=== PATIENT | female | born 1995 | race Caucasian/White ===

== ENCOUNTER 2017-03-03 19:43 | Emergency (ER) | payer BC ==
[~2017-03-03] VITALS: Ht 160 cm; Wt 54.4 kg
[2017-03-03 20:00] VITALS: BP 122/70; PULSE 109; RESP 19; TEMP 98.4; O2SAT 100
[2017-03-03] MEDS ORDERED: PROCHLORPERAZINE EDISYLATE 10 MG/2 ML VIAL IVP ONE (20:15)
[2017-03-03] MEDS ORDERED: NACL 0.9% 1,000 ML IV ONE (20:15)
[2017-03-03] MEDS ORDERED: KETOROLAC TROMETHAMINE 30 MG VIAL IVP ONE (20:15)
[2017-03-03] MEDS ORDERED: DIPHENHYDRAMINE INJ 50 MG/ML VIAL IVP ONE (20:15)
[2017-03-03 20:42] LABS: BILIRUBIN,URINE NEGATIVE (NEGATIVE); BLOOD, URINE NEGATIVE (NEGATIVE); CLARITY/URINE CLEAR (CLEAR); COLOR,URINE YELLOW (YELLOW); GLUCOSE,URINE NEGATIVE (NEGATIVE); KETONES,URINE NEGATIVE (NEGATIVE); LEUKOCYTE ESTERASE ,URINE NEGATIVE (NEGATIVE); NITRITE, URINE NEGATIVE (NEGATIVE); PROTEIN URINE NEGATIVE (NEGATIVE); UROBILINOGEN,URINE 0.2 (0.2-1.0)
[2017-03-03 21:16] VITALS: BP 120/78; PULSE 80; RESP 14; TEMP 98; O2SAT 99
== END 2017-03-03 21:16 | disposition home or self-care (01) ==
LOC: SED 19:43
DX: R51 Headache (principal); R03.0 Elevated blood-pressure reading, without diagnosis of hypertension
CPT/HCPCS: 81003; 81025; 96361; 96374; 96375; 99284; J0780; J1200; J1885; J7030

== ENCOUNTER 2017-03-07 21:39 | Emergency (ER) | payer BC ==
[~2017-03-07] VITALS: Ht 160 cm; Wt 54.4 kg
[2017-03-07 21:44] VITALS: BP 123/78; PULSE 87; RESP 18; TEMP 97.6; O2SAT 97
--- NOTE | 2017-03-07 21:48 | NUR ---
Patient to ER bed 5 to gown for evaluation. Side rails up. Report given to Nuvia FLORES.
--- NOTE | 2017-03-07 21:49 | NUR ---
Pt in bed 8 with c/o nausea and dizziness, no vomiting . Dr Silva aware.
--- NOTE | 2017-03-07 21:57 | NUR ---
ER at bedside examining patient.
[2017-03-07] MEDS ORDERED: MECLIZINE HCL 25 MG TABLET (ANITVERT) PO ONE (22:15)
[2017-03-07] MEDS ORDERED: METOCLOPRAMIDE HCL 10 MG/2 ML VIAL IVP ONE (22:15)
[2017-03-07] MEDS ORDERED: NACL 0.9% 1,000 ML IV ONE (22:15)
[2017-03-07 22:23] LABS: BASOPHILS % (AUTO) 0.3 % (0.0-2.0); EOSINOPHILS # (AUTO) 0.1 K/uL (0.0-0.4); EOSINOPHILS % (AUTO) 0.8 % (0.0-4.0); HEMATOCRIT 41.8 % (36-48); HEMOGLOBIN 13.9 g/dL (12.0-16.0); LYMPHOCYTES # (AUTO) 1.3 K/uL (1.0-5.5); LYMPHOCYTES % (AUTO) 17.7 % (20.5-51.5); MEAN CORPUSCULAR HEMOGLOBIN 29 pg (27-31); MEAN CORPUSCULAR HGB CONC 33 % (32-36); MEAN CORPUSCULAR VOLUME 86 fL (79.0-98.0); MONOCYTES # (AUTO) 0.5 K/uL (0.0-1.0); MONOCYTES % (AUTO) 6.7 % (1.7-9.3); NEUTROPHILS # (AUTO) 5.3 K/uL (1.8-7.7); NEUTROPHILS % (AUTO) 74.5 % (40.0-70.0); PLATELET COUNT (AUTO) 168 K/uL (130-430); RED BLOOD CELL COUNT(AUTO) 4.85 MIL/uL (4.2-6.2); RED CELL DISTRIBUTION WIDTH 12.2 % (9.0-15.0); WHITE BLOOD COUNT (AUTO) 7.2 K/uL (4.5-11.0)
[2017-03-07 22:29] LABS: BILIRUBIN,URINE NEGATIVE (NEGATIVE); BLOOD, URINE TRACE (NEGATIVE); CLARITY/URINE CLEAR (CLEAR); COLOR,URINE YELLOW (YELLOW); GLUCOSE,URINE NEGATIVE (NEGATIVE); KETONES,URINE NEGATIVE (NEGATIVE); LEUKOCYTE ESTERASE ,URINE NEGATIVE (NEGATIVE); NITRITE, URINE NEGATIVE (NEGATIVE); PROTEIN URINE NEGATIVE (NEGATIVE); UROBILINOGEN,URINE 0.2 (0.2-1.0)
--- NOTE | 2017-03-07 22:30 | NUR ---
# 20 gauge angiocath placed to LAC. Use of asceptic technique. Opsite placed over site. Blood return noted. Blood for lab drawn from site. Flushed with 10 cc of normal saline. No evidence of infiltration noted. Patient tolerated well.
[2017-03-07 22:37] LABS: CALCIUM 9.5 mg/dL (8.4-11.0); CREATININE 0.69 mg/dL (0.55-1.30); POTASSIUM 3.8 mmol/L (3.5-5.1)
[2017-03-07 22:38] LABS: BACTERIA,URINE RARE /HPF (None Seen); RBC,URINE 0-3 /HPF (0-3); WBC,URINE 0-3 /HPF (0-3)
[2017-03-07 22:39] LABS: MUCUS,URINE None Seen /LPF (None Seen)
[2017-03-07 22:40] LABS: BARBITURATE, URINE NEGATIVE (NEG <=200); BENZODIAZEPINE, URINE NEGATIVE (NEG <=150); CANNABINOID, URINE NEGATIVE (NEG <=50); COCAINE, URINE NEGATIVE (NEG <=150); METHAMPHETAMINES SCREEN,URINE NEGATIVE (NEG <=500); OPIATE, URINE NEGATIVE (NEG <=100); PHENCYCLIDINE SCREEN,URINE NEGATIVE (NEG <=25); UR TRICYCLIC ANTIDEPRESSANTS NEGATIVE (NEG <=300); URINE AMPHETAMINE NEGATIVE (NEG <=500); URINE METHADONE NEGATIVE (NEG <=200); URINE OXYCODONE SCREEN NEGATIVE (NEG <=100); URINE PROPOXYPHENE SCREEN NEGATIVE (NEG <=300)
[2017-03-07 22:43] LABS: ALBUMIN 4.1 g/dL (3.4-4.8); TOTAL BILIRUBIN 0.2 mg/dL (0.0-1.0)
--- NOTE | 2017-03-07 22:46 | NUR ---
Patient transported to radiology via GURNEY, accompanied by FIELD SUPERVISOR.
--- NOTE | 2017-03-07 22:51 | NUR ---
Returned from radiology, back to [facility].
[2017-03-07 23:50] VITALS: BP 118/67; PULSE 78; RESP 18; TEMP 97.6; O2SAT 97
--- NOTE | 2017-03-07 23:50 | NUR ---
Patient given written and verbal discharge instructions and verbalizes understanding. ER MD discussed with patient the results and treatment provided. Patient in stable condition. ID arm band removed. IV catheter removed intact and dressing applied, no active bleeding. Rx of antivert,reglan given. Patient educated on pain management and to follow up with PMD. Pain Scale 0/10. Opportunity for questions provided and answered.
== END 2017-03-07 23:50 | disposition home or self-care (01) ==
LOC: SED 21:39
DX: R42 Dizziness and giddiness (principal); B34.9 Viral infection, unspecified
CPT/HCPCS: 36415; 70450; 80053; 80307; 81000; 81025; 83690; 85025; 93005; 96361; 96374; 99285; J2765; J7030; J8597

== ENCOUNTER 2017-03-08 19:52 | Emergency (ER) | payer BC ==
[~2017-03-08] VITALS: Ht 160 cm; Wt 56.7 kg
[2017-03-08 20:06] VITALS: BP_SYST 106
--- NOTE | 2017-03-08 22:35 | NUR ---
Patient to ER bed 6 to gown for evaluation. Side rails up. Report given to MARK SOLARES.
--- NOTE | 2017-03-08 22:50 | NUR ---
Pt complain of feeling dizzy and nausea since wednesday. Pt was at [facility]R yesterday. pt stated did not medication at home, because pt read the side effects. Pt denied SOB, clear speech. pt's mother at bedside. will continue to monitor
--- NOTE | 2017-03-08 23:05 | NUR ---
BETTIE Beaulieu at bedside examining patient.
[2017-03-08] MEDS ORDERED: NACL 0.9% 1,000 ML IV ONE (23:15)
[2017-03-08] MEDS ORDERED: DIPHENHYDRAMINE INJ 50 MG/ML VIAL IVP ONE (23:15)
[2017-03-08] MEDS ORDERED: KETOROLAC TROMETHAMINE 30 MG VIAL IVP ONE (23:15)
[2017-03-08] MEDS ORDERED: ONDANSETRON HCL 4 MG/2 ML VIAL IVP ONE (23:15)
[2017-03-09] MEDS ORDERED: PREDNISONE 20 MG TABLET PO ONE (00:15)
[2017-03-09] MEDS ORDERED: DIPHENHYDRAMINE INJ 50 MG/ML VIAL ONE (00:24)
[2017-03-09] MEDS ORDERED: METOCLOPRAMIDE HCL 10 MG/2 ML VIAL IVP ONE (01:15)
[2017-03-09] MEDS ORDERED: METOCLOPRAMIDE HCL 10 MG/2 ML VIAL ONE (01:23)
--- NOTE | 2017-03-09 02:10 | NUR ---
Patient given written and verbal discharge instructions and verbalizes understanding. ER MD discussed with patient the results and treatment provided. Patient in stable condition. ID arm band removed. IV catheter removed intact and dressing applied, no active bleeding. No reaction noted for the medication. No Rx of given. Patient educated on pain management and to follow up with PMD. Pain Scale 0/10 Opportunity for questions provided and answered.
== END 2017-03-09 02:10 | disposition home or self-care (01) ==
LOC: SED 19:52
DX: R42 Dizziness and giddiness (principal); R11.0 Nausea
CPT/HCPCS: 81025; 96361; 96374; 96375; 99284; J1200; J1885; J2405; J2765; J7030; J7512

== ENCOUNTER 2017-03-31 19:25 | Emergency (ER) | payer BC ==
[~2017-03-31] VITALS: Ht 160 cm; Wt 56.2 kg
[2017-03-31 19:25] VITALS: BP_SYST 124
[2017-03-31 20:09] VITALS: BP_SYST 119
== END 2017-03-31 20:09 | disposition home or self-care (01) ==
LOC: SED 19:25
DX: F41.9 Anxiety disorder, unspecified (principal)
CPT/HCPCS: 81025; 93005; 99284

== ENCOUNTER 2017-06-01 19:57 | Inpatient (IN) | payer BC ==
[~2017-06-01] VITALS: Ht 160 cm; Wt 54.4 kg
[2017-06-01 20:03] VITALS: BP_SYST 104
[2017-06-01 22:07] LABS: CALCIUM 9.5 mg/dL (8.4-11.0); CREATININE 0.77 mg/dL (0.55-1.30); POTASSIUM 3.8 mmol/L (3.5-5.1)
[2017-06-01 22:09] LABS: BASOPHILS # (AUTO) 0.1 K/uL (0.0-0.2); BASOPHILS % (AUTO) 0.5 % (0.0-2.0); EOSINOPHILS % (AUTO) 0.3 % (0.0-4.0); HEMATOCRIT 43.4 % (36-48); HEMOGLOBIN 14.3 g/dL (12.0-16.0); LYMPHOCYTES # (AUTO) 1.8 K/uL (1.0-5.5); LYMPHOCYTES % (AUTO) 13.9 % (20.5-51.5); MEAN CORPUSCULAR HEMOGLOBIN 28 pg (27-31); MEAN CORPUSCULAR HGB CONC 33 % (32-36); MEAN CORPUSCULAR VOLUME 86 fL (79.0-98.0); MONOCYTES # (AUTO) 0.6 K/uL (0.0-1.0); MONOCYTES % (AUTO) 4.5 % (1.7-9.3); NEUTROPHILS # (AUTO) 10.1 K/uL (1.8-7.7); NEUTROPHILS % (AUTO) 80.8 % (40.0-70.0); PLATELET COUNT (AUTO) 203 K/uL (130-430); RED BLOOD CELL COUNT(AUTO) 5.08 MIL/uL (4.2-6.2); RED CELL DISTRIBUTION WIDTH 12.5 % (9.0-15.0); WHITE BLOOD COUNT (AUTO) 12.6 K/uL (4.5-11.0)
[2017-06-01 22:11] LABS: ALBUMIN 4.3 g/dL (3.4-4.8); TOTAL BILIRUBIN 0.6 mg/dL (0.0-1.0)
--- NOTE | 2017-06-01 22:11 | NUR ---
Patient to [facility] for evaluation. Side rails up. Report given to MARK SANTOYO.
--- NOTE | 2017-06-01 22:13 | NUR ---
Pt brought by mother, A&Ox4, pt c/o R lower abd pain 10/10, denies N/V, pt ambulatory , pt denies bleeding,denies N/V, skin pink and warm, cap refill <3.
--- NOTE | 2017-06-01 22:15 | NUR ---
Dr Spivey at bedside examining patient
[2017-06-01 22:25] LABS: BILIRUBIN,URINE NEGATIVE (NEGATIVE); BLOOD, URINE 2+ (NEGATIVE); CLARITY/URINE SL CLOUDY (CLEAR); COLOR,URINE YELLOW (YELLOW); GLUCOSE,URINE NEGATIVE (NEGATIVE); KETONES,URINE TRACE (NEGATIVE); LEUKOCYTE ESTERASE ,URINE 1+ (NEGATIVE); NITRITE, URINE NEGATIVE (NEGATIVE); PH,URINE 6.5 (5.0-8.0); PROTEIN URINE NEGATIVE (NEGATIVE); UROBILINOGEN,URINE 0.2 (0.2-1.0)
[2017-06-01 22:32] LABS: BACTERIA,URINE MODERATE /HPF (None Seen); RBC,URINE 0-3 /HPF (0-3)
--- NOTE | 2017-06-01 23:13 | NUR ---
Pt on stable condition, mother at bedside
[2017-06-01] MEDS ORDERED: ONDANSETRON HCL 4 MG/2 ML VIAL IVP PRN (23:45)
[2017-06-01] MEDS ORDERED: MORPHINE 2 MG/ML INJ. SYRINGE IVP PRN (23:45)
[2017-06-02] MEDS ORDERED: PIPERACILLIN/TAZOBACTAM 3.375 GM/VIAL (ZOSYN) IV ONE ×2 (00:01→01:11)
--- NOTE | 2017-06-02 00:41 | NUR ---
Patient will be admitted to care of Dr. Morton. Admitted to MS unit. Will go to room 123. Belongings list completed. Summary report printed. Report will be given at bedside.
--- NOTE | 2017-06-02 00:41 | NUR ---
ADMISSION NOTE Received patient from ER via gurney. Patient admitted with diagnosis of APPENDICITIS. Patient is awake, alert, oriented X4. Patient oriented to hospital room, call light, toileting, pain management and safety-teach back done. Patient informed that LITZY FLORES will be her nurse and that their room number is 123A . Personal belongings checked and Belongings List documented. Call light within reach.
--- NOTE | 2017-06-02 00:48 | NUR ---
RECEIVED REPORT FROM ER AND ADMITTING Report received from MARK Sweet and Dm Fregoso RN. Patient resting in bed and family at bedside. Patient normally ambulatory. V/S taken. Patient has no C/O pain at this time. Patient has no S/S of distress or discomfort noted. Peripheral IV noted, Left Wrist 20 G saline locked, patent and benign.
[2017-06-02 00:53] VITALS: BP_SYST 115
--- NOTE | 2017-06-02 01:07 | NUR ---
CONSULT DR. FAUZIA MIGUEL IS AWARE OF THE CONSULT HE ALREADY SPOKE WITH THE RN IN CHARGE OF THIS PATIENT
[2017-06-02] MEDS ORDERED: metroNIDAZOLE 500 mg/NS 100 ML IV ONE (01:11)
[2017-06-02] MEDS: D5/0.45 NS 1,000 ML IV SCH (01:20)
[2017-06-02] MEDS: PIPERACILLIN/TAZO 3.375 GM in NS 50 ML IV SCH ×3 (01:21→16:43)
--- NOTE | 2017-06-02 02:09 | NUR ---
RN ROUNDING Patient resting in bed. Family at bedside. No S/S of distress or discomfort noted. Patient denies pain at this time.
--- NOTE | 2017-06-02 04:27 | NUR ---
RN ROUNDING Patient sleeping in bed. No S/S of distress or discomfort noted.
--- NOTE | 2017-06-02 07:25 | NUR ---
RN CLOSING NOTE Report given to MARK Goode. Patient resting in bed and family at bedside. Patient ambulatory. Patient has no C/O pain at this time. Patient has no S/S of distress or discomfort noted. Peripheral IV noted, Left Wrist 20 G infusing D5 1/2 NS @ 90 ml/hr, patent and benign. Bed locked at lowest position w/ rails up and call armas within reach. Re-oriented patient to use of call armas. Standard and fall precautions implemented.
[2017-06-02 07:44] LABS: INR 1.1 (0.8-1.2); PROTHROMBIN TIME 11.1 SECS (9.5-12.5)
[2017-06-02] MEDS: metroNIDAZOLE 500 mg/NS 100 ML IV SCH ×2 (07:55→16:07)
--- NOTE | 2017-06-02 08:00 | NUR ---
Opening note Pt resting in bed ALOC x 4 with family at bedside, pt NPO awaiting laproscopic appendectomy. No s/s of SOB or distress, no c/o pain or discomfort at this time. REviewed care plan for the day and answered basic procedural questions about what to expect wtih the hospital stay. Physician will come to explain the procedure and have consent signed. Bed in low position with call light within reach and pt agrees to call for assistance.
[2017-06-02 08:27] VITALS: BP_SYST 120
[2017-06-02 09:10] LABS: HCG,QUAL RESULT NEGATIVE (NEGATIVE)
--- NOTE | 2017-06-02 09:45 | NUR ---
Pt to surgery Physician and anesthesiologist explained procedure to pt and obtained consent, screening had not been completed in the ER and was completed ahead of time. Pt transported to ER.
[2017-06-02] MEDS ORDERED: LR 1,000 ML IV ONE (11:11)
[2017-06-02] MEDS ORDERED: fentaNYL CITRATE/PF 100 MCG/2 ML AMP IVP PRN (11:15)
[2017-06-02] MEDS ORDERED: NALOXONE HCL 0.4 MG/ML AMP (NARCAN) IVP PRN (11:15)
[2017-06-02] MEDS ORDERED: ePHEDrine sulfate 50 MG/ML VIAL IVP PRN (11:15)
[2017-06-02] MEDS ORDERED: ONDANSETRON HCL 4 MG/2 ML VIAL IVP PRN ×2 (11:15)
[2017-06-02] MEDS ORDERED: NALBUPHINE HCL 10 MG/ML AMP IVP PRN (11:15)
[2017-06-02] MEDS ORDERED: KETOROLAC TROMETHAMINE 30 MG VIAL IM PRN (11:15)
[2017-06-02] MEDS ORDERED: DIPHENHYDRAMINE INJ 50 MG/ML VIAL IVP PRN (11:15)
[2017-06-02] MEDS ORDERED: fentaNYL CITRATE/PF 100 MCG/2 ML AMP ONE (11:57)
[2017-06-02] MEDS ORDERED: PIPERACILLIN/TAZO 3.375/DEX-IS 50 ML IV SCH (12:00)
[2017-06-02 12:06] VITALS: BP_SYST 120
--- NOTE | 2017-06-02 12:45 | NUR ---
Pt received from Surgery pt received from surgery, ALOC x 4, no s/s of SOB or distress, no c/o pain or discomfort at this time. Vital signs obtained. Will continue to monitor, family at bedside.
[2017-06-02] MEDS ORDERED: HYDROmorphone 1 MG INJ. 1 MG/ML AMPUL IM PRN (14:00)
--- NOTE | 2017-06-02 14:00 | NUR ---
Rounding Helped pt to restroom, no s/s of SOB or c/o pain. Bed in low position with call light within reach.
[2017-06-02 16:00] VITALS: BP_SYST 112
--- NOTE | 2017-06-02 16:00 | NUR ---
Rounding Pt resting in bed with family at bedside, no s/s of SOB or distress, no c/o pain or discomfort. Awaiting her dinner, c/o being "a little hungry".
--- NOTE | 2017-06-02 17:45 | NUR ---
Pharmacy contact contacted pharmacy on the floor about late admin of flagyl and zosyn this afternoon and asked them to adjust dose.
--- NOTE | 2017-06-02 18:30 | NUR ---
Closing note Pt resting in bed with family at bedside, no s/s of SOB or distress, no c/o pain or discomfort. Pt ate her dinner and ambulated to restroom independently. Pt has steady gait. Bed left in low position with call light within reach, pt agrees to call for assistance. Will endorse and give report to NOC shift nurse.
[2017-06-02 20:13] VITALS: BP_SYST 121
--- NOTE | 2017-06-02 22:15 | NUR ---
PATIENT awake alert on room air 02 SAT 97 % no SOB noted with position change call armas with patient procedures explained family @ the bedside .
--- NOTE | 2017-06-03 | NUR ---
ZOSYN 2.25GM IVPB administer as ordered no allergic reaction skin rash free dry warm .
[2017-06-03] MEDS: PIPERACILLIN/TAZO 3.375 GM in NS 50 ML IV SCH ×4 (00:38→18:05)
[2017-06-03] MEDS: metroNIDAZOLE 500 mg/NS 100 ML IV SCH ×4 (00:39→17:59)
[2017-06-03] MEDS: D5/0.45 NS 1,000 ML IV SCH ×3 (00:44→18:06)
--- NOTE | 2017-06-03 02:48 | NUR ---
HOURLY ROUNDING patient awake alert skin dry warm assist out of bed to rest room activity tolerated / .
[2017-06-03 02:52] VITALS: BP_SYST 115
--- NOTE | 2017-06-03 02:52 | NUR ---
FLAGYL 500 MG IVPB administer as ordered no allergic reaction noted skin rash free no complaints made .
--- NOTE | 2017-06-03 06:11 | NUR ---
Patient awake assist out of bed to restroom , no active bleeding noted skin dry warm respirations regular also unlabored / .
[2017-06-03 08:00] VITALS: BP_SYST 108
--- NOTE | 2017-06-03 08:00 | NUR ---
RN OPENING NOTE PATIENT RESTING ON BED, ALERT ORIENTED X 4, PATIENT WAS ASSESSED, VITAL SIGNS ARE STABLE. PATIENT DENIES PAIN OR DISCOMFORT. PATIENT'S BED WAS PUT IN A LOW POSITION AND CALL LIGHT WITHIN REACH, WILL CONTINUE TO MONITOR .
--- NOTE | 2017-06-03 10:00 | NUR ---
RN NOTES PATIENT WAS EDUCATED ABOUT FALL PREVENTION, INFECTION CONTROL, WILL CONTINUE TO MONITOR
[2017-06-03 12:00] VITALS: BP_SYST 112
--- NOTE | 2017-06-03 12:00 | NUR ---
RN NOTES PATIENT IS ALERT ORIENTED X 4, DENIES PAIN OR DISCOMFORT. PATIENT WAS GIVEN HER IVPB OF FLAGYL WELL ZOSYN, PATIENT WAS SERVED LUNCH AND PATIENT IS SITTING AT THE BED EDGE EATING HER LUNCH. WILL FOLLOW UP.
--- NOTE | 2017-06-03 14:00 | NUR ---
RN ROUNDS PATIENT IS ACTIVELY WALKING IN THE [place], DENIES PAIN OR DISCOMFORT. PATIENT IS ASKING WHEN SHE WILL BE D/C HOME, WILL CONTACT THE DOCTOR. TO CHECK OUT ON HER STATUS.
--- NOTE | 2017-06-03 16:00 | NUR ---
RN ROUNDS PATIENT IS AMBULATING IN THE [place] WITH HER MOTHER, DENIES PAIN OR DISCOMFORT, VITAL SIGNS ARE STABLE, WILL FOLLOW UP
--- NOTE | 2017-06-03 18:00 | NUR ---
RN CLOSING NOTE PATIENT GOT HER ANTIBIOTICS IVPB, TRIED TO CONTACT THE SURGEON SO TO ASK IF WE CAN D/C THE PATIENT HOME, JESSICA THE CHARGE NURSE SAID WILL TAKE CARE OF THAT, WILL ENDORSE TO NEXT SHIFT
[2017-06-03 19:57] VITALS: BP_SYST 105
== END 2017-06-03 20:40 | disposition home or self-care (01) | DRG 331 ==
LOC: SED 19:57 → SMU 23:35
PROVIDERS: ADMIT General Practice; ATTEND Internal Medicine Hospice and Palliative Medicine
PROC: 0DBH4ZZ Excision of Cecum, Percutaneous Endoscopic Approach (ICD-10-PCS; 2017-06-02)
PROC: 0DNW4ZZ Release Peritoneum, Percutaneous Endoscopic Approach (ICD-10-PCS; 2017-06-02)
PROC: 0DTJ4ZZ Resection of Appendix, Percutaneous Endoscopic Approach (ICD-10-PCS; principal; 2017-06-02 11:00)
DX: K35.80 Unspecified acute appendicitis (principal); K66.0 Peritoneal adhesions (postprocedural) (postinfection)
CPT/HCPCS: 36415; 80053; 81000-TC; 82150-TC; 83690-TC; 84703; 85025; 85610-TC; 85730-TC; 87040-TC; 87081; 87086; 94010; 99285; C1727; J2543; J3010; J3490

== ENCOUNTER 2017-06-07 01:13 | Emergency (ER) | payer BC ==
[~2017-06-07] VITALS: Ht 160 cm; Wt 54.4 kg
[2017-06-07 01:13] VITALS: BP_SYST 120
[2017-06-07 02:01] LABS: BILIRUBIN,URINE NEGATIVE (NEGATIVE); BLOOD, URINE TRACE (NEGATIVE); CLARITY/URINE CLEAR (CLEAR); COLOR,URINE YELLOW (YELLOW); GLUCOSE,URINE NEGATIVE (NEGATIVE); KETONES,URINE NEGATIVE (NEGATIVE); LEUKOCYTE ESTERASE ,URINE NEGATIVE (NEGATIVE); NITRITE, URINE NEGATIVE (NEGATIVE); PH,URINE 6.5 (5.0-8.0); PROTEIN URINE NEGATIVE (NEGATIVE); UROBILINOGEN,URINE 0.2 (0.2-1.0)
[2017-06-07 02:06] LABS: BACTERIA,URINE FEW /HPF (None Seen); RBC,URINE 0-3 /HPF (0-3); WBC,URINE 0-3 /HPF (0-3)
[2017-06-07 02:07] LABS: MUCUS,URINE None Seen /LPF (None Seen)
[2017-06-07 02:49] VITALS: BP_SYST 123
== END 2017-06-07 02:49 | disposition home or self-care (01) ==
LOC: SED 01:13
DX: R07.89 Other chest pain (principal); Z90.89 Acquired absence of other organs
CPT/HCPCS: 71045; 81000-TC; 81025; 93005; 99285

== ENCOUNTER 2017-06-24 23:16 | Emergency (ER) | payer BC ==
[~2017-06-24] VITALS: Ht 160 cm; Wt 54.4 kg
[2017-06-24 23:46] VITALS: BP_SYST 104
--- NOTE | 2017-06-25 | NUR ---
Patient to ER bed 5 to gown for evaluation. Side rails up. Report given by MARK Blakely to MARK Sosa.
--- NOTE | 2017-06-25 00:05 | NUR ---
Pt is AAOX4 and ambulatory. Pt states she started having 8/10 sharp pain in RLQ that started earlier today. Pt states she is having nausea but denies vomitting and diarrhea. Pt states no problems with urination or bowel movements. Pt also states she had an appendectomy on June 02. VSS, no signs of distress noted.
--- NOTE | 2017-06-25 00:19 | NUR ---
ER Dr. Boyce at bedside examining patient.
[2017-06-25] MEDS ORDERED: KETOROLAC TROMETHAMINE 60 MG/2 ML VIAL IM ONE (00:30)
[2017-06-25] MEDS ORDERED: ONDANSETRON 4 MG ODT TAB PO ONE (00:30)
[2017-06-25 01:16] LABS: BILIRUBIN,URINE NEGATIVE (NEGATIVE); BLOOD, URINE NEGATIVE (NEGATIVE); CLARITY/URINE CLEAR (CLEAR); GLUCOSE,URINE NEGATIVE (NEGATIVE); KETONES,URINE NEGATIVE (NEGATIVE); LEUKOCYTE ESTERASE ,URINE NEGATIVE (NEGATIVE); NITRITE, URINE NEGATIVE (NEGATIVE); PROTEIN URINE NEGATIVE (NEGATIVE); UROBILINOGEN,URINE 0.2 (0.2-1.0)
[2017-06-25 01:17] LABS: COLOR,URINE STRAW (YELLOW)
[2017-06-25 01:58] VITALS: BP_SYST 108
--- NOTE | 2017-06-25 01:58 | NUR ---
Patient given written and verbal discharge instructions and verbalizes understanding. ER MD discussed with patient the results and treatment provided. Patient in stable condition. ID arm band removed. Rx of tramadol and motrin given. Patient educated on pain management and to follow up with PMD. Pain Scale 0/10. Opportunity for questions provided and answered.
== END 2017-06-25 01:58 | disposition home or self-care (01) ==
LOC: SED 23:16
DX: N83.01 Follicular cyst of right ovary (principal); Z90.89 Acquired absence of other organs
CPT/HCPCS: 76830; 76857; 81003; 96372; 99285; J1885; Q0162

== ENCOUNTER 2017-10-20 23:29 | Emergency (ER) | payer BC ==
[~2017-10-20] VITALS: Ht 160 cm; Wt 56.7 kg
[2017-10-20 23:50] VITALS: BP_SYST 123
[2017-10-21 01:24] VITALS: BP_SYST 121
== END 2017-10-21 01:24 | disposition home or self-care (01) ==
LOC: SED 23:29
DX: N83.209 Unspecified ovarian cyst, unspecified side (principal); R03.0 Elevated blood-pressure reading, without diagnosis of hypertension; Z90.89 Acquired absence of other organs
CPT/HCPCS: 76830-TC; 76857; 99284

== ENCOUNTER 2017-10-25 19:00 | Emergency (ER) | payer BC ==
[~2017-10-25] VITALS: Ht 160 cm; Wt 56.7 kg
[2017-10-25 19:10] VITALS: BP_SYST 117
[2017-10-25 19:42] LABS: BASOPHILS % (AUTO) 0.9 % (0.0-2.0); EOSINOPHILS # (AUTO) 0.1 K/uL (0.0-0.4); EOSINOPHILS % (AUTO) 1.1 % (0.0-4.0); HEMATOCRIT 46.2 % (36-48); HEMOGLOBIN 15.6 g/dL (12.0-16.0); LYMPHOCYTES # (AUTO) 1.9 K/uL (1.0-5.5); LYMPHOCYTES % (AUTO) 34.6 % (20.5-51.5); MEAN CORPUSCULAR HEMOGLOBIN 29 pg (27-31); MEAN CORPUSCULAR HGB CONC 34 % (32-36); MEAN CORPUSCULAR VOLUME 87 fL (79.0-98.0); MONOCYTES # (AUTO) 0.5 K/uL (0.0-1.0); MONOCYTES % (AUTO) 9.5 % (1.7-9.3); NEUTROPHILS # (AUTO) 2.9 K/uL (1.8-7.7); NEUTROPHILS % (AUTO) 53.9 % (40.0-70.0); PLATELET COUNT (AUTO) 181 K/uL (130-430); RED BLOOD CELL COUNT(AUTO) 5.34 MIL/uL (4.2-6.2); RED CELL DISTRIBUTION WIDTH 12.6 % (9.0-15.0); WHITE BLOOD COUNT (AUTO) 5.4 K/uL (4.5-11.0)
[2017-10-25] MEDS ORDERED: NACL 0.9% 1,000 ML IV ONE (20:00)
[2017-10-25] MEDS ORDERED: MORPHINE 4 MG/ML INJ. SYRINGE IVP ONE (20:00)
[2017-10-25 20:02] LABS: CALCIUM 8.8 mg/dL (8.4-11.0); CREATININE 0.71 mg/dL (0.55-1.30); POTASSIUM 3.7 mmol/L (3.5-5.1)
[2017-10-25 20:06] LABS: ALBUMIN 4.2 g/dL (3.4-4.8); TOTAL BILIRUBIN 0.3 mg/dL (0.0-1.0)
[2017-10-25 20:06] LABS: BILIRUBIN,URINE NEGATIVE (NEGATIVE); CLARITY/URINE CLEAR (CLEAR); COLOR,URINE YELLOW (YELLOW); GLUCOSE,URINE NEGATIVE (NEGATIVE); KETONES,URINE NEGATIVE (NEGATIVE); LEUKOCYTE ESTERASE ,URINE NEGATIVE (NEGATIVE); NITRITE, URINE NEGATIVE (NEGATIVE); PROTEIN URINE NEGATIVE (NEGATIVE); UROBILINOGEN,URINE 0.2 (0.2-1.0)
[2017-10-25 20:09] LABS: BLOOD, URINE TRACE (NEGATIVE)
[2017-10-25] MEDS: ONDANSETRON HCL 4 MG/2 ML VIAL IVP ONE ×2 (20:25→20:32)
[2017-10-25] MEDS: DIPHENHYDRAMINE INJ 50 MG/ML VIAL IVP ONE ×2 (20:26→20:32)
[2017-10-25 20:36] LABS: RBC,URINE 0-3 /HPF (0-3)
[2017-10-25 20:37] LABS: BACTERIA,URINE RARE /HPF (None Seen); MUCUS,URINE None Seen /LPF (None Seen); WBC,URINE 0-3 /HPF (0-3)
[2017-10-25 23:24] VITALS: BP_SYST 125
== END 2017-10-25 23:24 | disposition home or self-care (01) ==
LOC: SED 19:11
DX: K59.00 Constipation, unspecified (principal); Z90.89 Acquired absence of other organs
CPT/HCPCS: 36415; 74021; 76700; 80053; 81000; 81025; 83690; 85025; 96360; 96361; 99285; J7030; J1200; J2270; J2405

== ENCOUNTER 2018-01-26 16:30 | Emergency (ER) | payer BC ==
[~2018-01-26] VITALS: Ht 160 cm; Wt 56.7 kg
[2018-01-26 16:35] VITALS: BP_SYST 123
[2018-01-26] MEDS ORDERED: KETOROLAC TROMETHAMINE 60 MG/2 ML VIAL IM ONE (17:15)
[2018-01-26 17:32] LABS: BASOPHILS # (AUTO) 0.1 K/uL (0.0-0.2); BASOPHILS % (AUTO) 0.9 % (0.0-2.0); EOSINOPHILS % (AUTO) 0.8 % (0.0-4.0); HEMATOCRIT 42.7 % (36-48); HEMOGLOBIN 14.2 g/dL (12.0-16.0); LYMPHOCYTES # (AUTO) 1.9 K/uL (1.0-5.5); LYMPHOCYTES % (AUTO) 31.5 % (20.5-51.5); MEAN CORPUSCULAR HEMOGLOBIN 29 pg (27-31); MEAN CORPUSCULAR HGB CONC 33 % (32-36); MEAN CORPUSCULAR VOLUME 87 fL (79.0-98.0); MONOCYTES # (AUTO) 0.6 K/uL (0.0-1.0); MONOCYTES % (AUTO) 9.4 % (1.7-9.3); NEUTROPHILS # (AUTO) 3.5 K/uL (1.8-7.7); NEUTROPHILS % (AUTO) 57.4 % (40.0-70.0); PLATELET COUNT (AUTO) 163 K/uL (130-430); RED BLOOD CELL COUNT(AUTO) 4.89 MIL/uL (4.2-6.2); RED CELL DISTRIBUTION WIDTH 12.4 % (9.0-15.0); WHITE BLOOD COUNT (AUTO) 6.1 K/uL (4.5-11.0)
[2018-01-26 17:36] LABS: BILIRUBIN,URINE NEGATIVE (NEGATIVE); BLOOD, URINE NEGATIVE (NEGATIVE); CLARITY/URINE SL HAZY (CLEAR); GLUCOSE,URINE NEGATIVE (NEGATIVE); KETONES,URINE NEGATIVE (NEGATIVE); LEUKOCYTE ESTERASE ,URINE NEGATIVE (NEGATIVE); NITRITE, URINE NEGATIVE (NEGATIVE); PH,URINE 6.5 (5.0-8.0); PROTEIN URINE NEGATIVE (NEGATIVE); UROBILINOGEN,URINE 0.2 (0.2-1.0)
[2018-01-26 17:39] LABS: COLOR,URINE STRAW (YELLOW)
[2018-01-26] MEDS ORDERED: IBUPROFEN 600 MG TABLET PO ONE (17:45)
[2018-01-26 17:46] LABS: CALCIUM 9.1 mg/dL (8.4-11.0); CREATININE 0.61 mg/dL (0.55-1.30); POTASSIUM 3.4 mmol/L (3.5-5.1)
[2018-01-26 17:46] LABS: BACTERIA,URINE MODERATE /HPF (None Seen); MUCUS,URINE None Seen /LPF (None Seen); RBC,URINE 0-3 /HPF (0-3)
[2018-01-26 17:51] LABS: ALBUMIN 4.1 g/dL (3.4-4.8); TOTAL BILIRUBIN 0.4 mg/dL (0.0-1.0)
[2018-01-26 19:54] VITALS: BP_SYST 122
== END 2018-01-26 19:40 | disposition home or self-care (01) ==
LOC: SED 16:30
DX: R10.2 Pelvic and perineal pain (principal)
CPT/HCPCS: 36415; 76830; 76857; 80053; 81000; 85025; 87086; 99285; J1885

== ENCOUNTER 2018-09-10 22:28 | Emergency (ER) | payer BC ==
[~2018-09-10] VITALS: Ht 160 cm; Wt 54.4 kg
[2018-09-10 22:40] VITALS: BP_SYST 128
[2018-09-10 22:58] LABS: BILIRUBIN,URINE NEGATIVE (NEGATIVE); BLOOD, URINE 1+ (NEGATIVE); CLARITY/URINE CLEAR (CLEAR); COLOR,URINE YELLOW (YELLOW); GLUCOSE,URINE NEGATIVE (NEGATIVE); KETONES,URINE NEGATIVE (NEGATIVE); LEUKOCYTE ESTERASE ,URINE NEGATIVE (NEGATIVE); NITRITE, URINE NEGATIVE (NEGATIVE); PROTEIN URINE NEGATIVE (NEGATIVE); UROBILINOGEN,URINE 0.2 (0.2-1.0)
[2018-09-10 23:15] LABS: BACTERIA,URINE RARE /HPF (None Seen); WBC,URINE 0-3 /HPF (0-3)
[2018-09-10] MEDS ORDERED: ONDANSETRON HCL 4 MG/2 ML VIAL IVP ONE (23:30)
[2018-09-10] MEDS ORDERED: NACL 0.9% 1,000 ML IV ONE (23:30)
[2018-09-10 23:59] LABS: BASOPHILS % (AUTO) 0.4 % (0.0-2.0); EOSINOPHILS % (AUTO) 0.3 % (0.0-4.0); HEMATOCRIT 46.6 % (36-48); HEMOGLOBIN 15.4 g/dL (12.0-16.0); LYMPHOCYTES # (AUTO) 1.6 K/uL (1.0-5.5); LYMPHOCYTES % (AUTO) 28.1 % (20.5-51.5); MEAN CORPUSCULAR HEMOGLOBIN 29 pg (27-31); MEAN CORPUSCULAR HGB CONC 33 % (32-36); MEAN CORPUSCULAR VOLUME 88 fL (79.0-98.0); MONOCYTES # (AUTO) 0.6 K/uL (0.0-1.0); NEUTROPHILS # (AUTO) 3.4 K/uL (1.8-7.7); NEUTROPHILS % (AUTO) 61.2 % (40.0-70.0); PLATELET COUNT (AUTO) 199 K/uL (130-430); RED BLOOD CELL COUNT(AUTO) 5.32 MIL/uL (4.2-6.2); RED CELL DISTRIBUTION WIDTH 13.1 % (9.0-15.0); WHITE BLOOD COUNT (AUTO) 5.6 K/uL (4.5-11.0)
[2018-09-11 00:11] LABS: CALCIUM 9.5 mg/dL (8.4-11.0); CREATININE 0.7 mg/dL (0.55-1.30); POTASSIUM 3.5 mmol/L (3.5-5.1)
[2018-09-11 00:16] LABS: ALBUMIN 4.2 g/dL (3.4-4.8); TOTAL BILIRUBIN 0.2 mg/dL (0.0-1.0)
[2018-09-11 01:53] VITALS: BP_SYST 128
== END 2018-09-11 01:52 | disposition home or self-care (01) ==
LOC: SED 22:28
DX: F43.22 Adjustment disorder with anxiety (principal); R11.2 Nausea with vomiting, unspecified; Z90.89 Acquired absence of other organs
CPT/HCPCS: 36415; 80053; 81000; 81025; 85025; 96360; 99284; J2405; J7030; 99283